=== PATIENT | male | born 1975 | race American Indian/Alaskan Native ===

== ENCOUNTER 2019-02-05 19:16 | Emergency (ER) | payer OTHER ==
[2019-02-05] MEDS ORDERED: ACETAMINOPHEN 500 MG TAB PO ONE (20:43)
[2019-02-05] MEDS ORDERED: METOCLOPRAMIDE 10 MG TAB PO ONE (20:43)
[2019-02-05] MEDS ORDERED: diphenhydrAMINE 25 MG CAP PO ONE (20:43)
--- NOTE | 2019-02-05 21:09 | Emergency Department Report ---
ED Headache HPI - General Chief Complaint: Headache Stated Complaint: HEADACHE Time Seen by Provider: 02/05/19 20:42 - History of Present Illness Initial Comments: Mr. Friend is a 43-year-old -Indian male carvalho states he was pulling [place] yesterday and a piece of sheet rock hit him in his head. there as no LOC, no abrasion, no laceration, no bleeding, patient states she didn't seek treatment yesterday because he didn't have a headache yesterday. states mild right frontal headache since last night. There is no photophobia, no nausea vomiting, no dizziness or lightheadedness. Patient remains M Ettore steady gait to baseline per patient. There is no swelling or neck pain. No numbness or tingling. Patient states he just wants the incident documented in the be checked out. Timing/Duration: 24 hours Quality: mild Head Injury Location: frontal Recent Head Trauma: occasional headaches Associated Symptoms: denies symptoms. denies: fever/chills, loss of consciousness, nasal congestion, nasal drainage, seizures, sinus infection, stiff neck, vision changes, weakness Allergies/Adverse Reactions: Allergies No Known Allergies Allergy (Unverified 02/05/19 20:24) Home Medications: Ambulatory Orders Acetaminophen [Acetaminophen TAB] 1,000 mg PO Q6HR PRN #30 tablet 02/05/19 diphenhydrAMINE [Benadryl CAP] 25 mg PO Q6HR PRN #30 capsule 02/05/19 ED Review of Systems ROS: Stated complaint: HEADACHE Other details as noted in HPI Constitutional: denies: chills, fever Eyes: denies: eye pain, eye discharge, vision change ENT: denies: ear pain, throat pain Respiratory: denies: cough, shortness of breath, wheezing Cardiovascular: denies: chest pain, palpitations Endocrine: no symptoms reported Gastrointestinal: denies: abdominal pain, nausea, diarrhea Genitourinary: denies: urgency, dysuria Musculoskeletal: denies: back pain, joint swelling, arthralgia Skin: denies: rash, lesions Neurological: denies: headache, weakness, paresthesias Psychiatric: denies: anxiety, depression Hematological/Lymphatic: denies: easy bleeding, easy bruising ED Past Medical Hx - Past Medical History Previous Medical History?: No - Surgical History Past Surgical History?: No - Social History Smoking Status: Never Smoker - Medications Home Medications: Home Medications Medication Instructions Recorded Confirmed Last Taken Type Acetaminophen [Acetaminophen TAB] 1,000 mg PO Q6HR PRN #30 tablet 02/05/19 Unknown Rx diphenhydrAMINE [Benadryl CAP] 25 mg PO Q6HR PRN #30 capsule 02/05/19 Unknown Rx ED Physical Exam - General Limitations: No Limitations General appearance: alert, in no apparent distress - Head Head exam: Present: normocephalic, normal inspection - Expanded Head Exam Expanded Head exam: Absent: laceration, abrasion, contusion, hematoma, racoon eyes, wilde's sign, general tenderness, tenderness of temporal artery, CSF rhinorrhea, CSF otorrhea - Eye Eye exam: Present: normal appearance, PERRL, EOMI. Absent: conjunctival injection, nystagmus Pupils: Present: normal accommodation - ENT ENT exam: Present: normal orophraynx, mucous membranes moist, TM's normal bilaterally, normal external ear exam - Neck Neck exam: Present: normal inspection, full ROM. Absent: tenderness, meningismus, lymphadenopathy, thyromegaly - Expanded Neck Exam Expanded Neck exam: Absent: tenderness (no posterior vertebral point tenderness rom intact and unrestricted. ), midline deformity, anterior neck swelling, thyroid mass, carotid bruit, tracheal deviation - Respiratory Respiratory exam: Present: normal lung sounds bilaterally, chest wall tenderness. Absent: respiratory distress, wheezes, stridor - Cardiovascular Cardiovascular Exam: Present: regular rate, normal rhythm, normal heart sounds - GI/Abdominal GI/Abdominal exam: Present: soft, normal bowel sounds. Absent: tenderness - Rectal Rectal exam: Present: deferred - Extremities Exam Extremities exam: Present: normal inspection, full ROM. Absent: tenderness - Back Exam Back exam: Present: normal inspection, full ROM. Absent: tenderness, muscle spasm, vertebral tenderness - Neurological Exam Neurological exam: Present: alert, oriented X3, CN II-XII intact, normal gait, reflexes normal. Absent: motor sensory deficit - Expanded Neurological Exam Expanded Patient oriented to: Present: person, place, time Speech: Present: fluid speech Cranial nerves: EOM's Intact: Normal, Gag Reflex: Normal, Tongue Deviation: Normal, Nystagmus: Normal, Facial Sensation: Normal Motor strength exam: RUE: 5, LUE: 5, RLE: 5, LLE: 5 Best Eye Response (Boaz): (4) open spontaneously Best Motor Response (Hai): (6) obeys commands Best Verbal Response (Hai): (5) oriented Hai Total: 15 - Psychiatric Psychiatric exam: Present: normal affect, normal mood - Skin Skin exam: Present: warm, dry, intact, normal color. Absent: rash ED Course Vital Signs 02/05/19 19:38 Temperature 98.5 F Pulse Rate 69 Respiratory 18 Rate Blood Pressure 120/86 O2 Sat by Pulse 91 Oximetry ED Medical Decision Making - Medical Decision Making This is a minor head injury, there is no abrasion, no swelling ,no laceration ,no bleeding ,no deformity, no crepitus ,no step-off. Headache is relieved with medications given in ED. Plan: D/C home a prescription for Tylenol Benadryl when necessary headache. follow-up with PCP in 2-3 ,days return to ED should symptoms worsen or develop. patient verbalizes agreement and understanding of discharge plan will be DC'd to home in stable condition at this time. Patient has been given head injury precautions and verbalizes understanding of same. Critical care attestation.: If time is entered above; I have spent that time in minutes in the direct care of this critically ill patient, excluding procedure time. ED Disposition Clinical Impression: Minor head injury Qualifiers: Encounter type: initial encounter Qualified Code(s): S09.90XA - Unspecified injury of head, initial encounter Headache Qualifiers: Headache type: unspecified Headache chronicity pattern: acute headache Intractability: not intractable Qualified Code(s): R51 - Headache Disposition: DC-01 TO HOME OR SELFCARE Is pt being admited?: No Does the pt Need Aspirin: No Condition: Stable Instructions: Minor Head Injury (ED), Acute Headache (ED) Prescriptions: Acetaminophen [Acetaminophen TAB] 1,000 mg PO Q6HR PRN #30 tablet PRN Reason: Headache diphenhydrAMINE [Benadryl CAP] 25 mg PO Q6HR PRN #30 capsule PRN Reason: Headache Referrals: JAE JADE MD [Staff Physician] - 3-5 Days Forms: Work/School Release Form(ED) Time of Disposition: 21:17
[2019-02-05 21:37] VITALS: BP 124/67
== END 2019-02-05 21:35 | disposition home or self-care (01) ==
LOC: ED 19:16
DX: S09.90XA Unspecified injury of head, initial encounter (principal); W22.8XXA Striking against or struck by other objects, initial encounter; Y93.89 Activity, other specified; Y92.89 Other specified places as the place of occurrence of the external cause; Y99.8 Other external cause status